=== PATIENT | male | born 1950 | race Caucasian/White ===

== ENCOUNTER 2024-10-16 20:20 | Inpatient (IN) | payer MEDICARE, OTHER, SELFPAY ==
[2024-10-16 20:22] VITALS: BMI 27.0
--- NOTE | 2024-10-16 20:26 | EKG_ITS ---
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1950 Requested By: Cole Estrella Order Number: [id number] Reading MD: Cole Estrella Measurements Intervals [place] Rate: 99 P: 64 TN: 168 QRS: 267 QRSD: 97 T: 72 QT: 329 QTc: 422 Interpretive Statements SINUS RHYTHM INCOMPLETE RIGHT BUNDLE BRANCH BLOCK [90+ ms QRS DURATION, TERMINAL R IN V1/V2, 40+ ms S IN I/aVL/V4/V5/V6] RIGHT VENTRICULAR HYPERTROPHY [SOME/ALL OF: PROMINENT R IN V1, LATE TRANSITION, RAD, SCOT, SSS] Compared to ECG 12/17/2023 18:35:48 Incomplete right bundle-branch block now present Atrial abnormality now present Right ventricular hypertrophy now present Indeterminate axis no longer present /store/S0/[id number]
[2024-10-16 20:48] VITALS: BP 139/100; PULSE 98; TEMP 36.4; O2SAT 93
--- NOTE | 2024-10-16 20:51 | EDNOTE_ITS ---
ED SOB =RME/HPI General Chief Complaint: Chest Pain Stated Complaint: CHEST PAIN, SOB, HIGH BP Time Seen by Provider: 10/16/24 20:22 Arrival date/time: 10/16/24 20:20 RME / HPI RME / HPI Narrative: This section includes all my notes and documentations, including HPI, PE, and ED course. Cole Walter MD HPI: 74-year-old male here with 2 to 3 week history of worsening cough, productive cough, purulent sputum, and dyspnea. Has been seen by doctors multiple times, including at another emergency room. Took 2 courses of Z-Semaj and prednisone courses. But not getting better. Using more oxygen than normal. Normally, he uses oxygen only as needed, such as when exercising. But in the past couple weeks, he has been using the oxygen [id number] with no relief. He also reports anterior chest pain for the past few days. No other complaints. ROS: All negative except as documented in HPI. Physical Exam: General: Alert and oriented. In mild respiratory distress. Hypoxia noted. Eyes: Conjunctivae and lids clear. ENT: No nasal congestion. Neck: Supple. Heart: RRR. Lungs: Mild respiratory distress. Severely decreased air movement with diffuse rhonchi. Abdomen: Soft and nontender. Skin: Warm and dry. Neuro: Alert and oriented X 3. I reviewed all diagnostic test results. My interpretation of the EKG is sinus rhythm with no acute ST?T changes. My interpretation of the chest x-ray is no acute findings. Blood tests and urine tests unremarkable. At this point, diagnoses include acute respiratory failure with hypoxia and COPD exacerbation. Treatment here included Solu-Medrol and neb treatments and Levaquin and two Tylenol #3. Significant improvement not noted. I discussed the case with our hospitalist. About the presentation and exam and diagnostics and treatments here. And need of further care in the hospital. Will accept the patient. Cole Walter MD Related Data Home Medications ?Medication ?Instructions ?Recorded ?Confirmed albuterol sulfate 90 mcg/actuation 2 puff inhalation Q 6H PRN sob 12/03/20 12/03/20 aerosol inhaler budesonide-formoterol HFA 160 2 puff inhalation BID 12/03/20 mcg-4.5 mcg/actuation aerosol inhaler (Symbicort) cephalexin 500 mg capsule 500 mg PO Q4H 12/03/2012/03 prednisone 20 mg tablet 20 mg PO Q8H 12/03/20 tiotropium bromide 18 mcg capsule 18 mcg inhalation QD AY 12/03/20 12/03/20 with inhalation device (Spiriva with HandiHaler) Previous Rx's ?Medication ?Instructions ?Recorded levofloxacin 750 mg tablet 750 mg PO QDAY #4 tabs 11/11 10/31 promethazine-DM 6.25 mg-15 mg/5 mL 5 ml PO QPM #473 mL 12/03/20 oral syrup budesonide-formoterol HFA 160 1 puff inhalation BID #1 0.2 grams 12/02/21 mcg-4.5 mcg/actuation aerosol inhaler (Symbicort) cephalexin 500 mg capsule 500 mg PO QID #20 caps 12/02 prednisone 20 mg tablet 20 mg PO QDAY PRN copd #20 t abs 12/02/21 prednisone 20 mg tablet See Taper PO QDAY #16 tabs 0 12/17/23 Allergies Allergy/AdvReac Type Severity Reaction Status Date / Time No Known Allergies Allergy Verified 10/16/24 20:22 Course Quality Measures none Orders Category Date Time Status Bedside COVID-19 Antigen Test NOW Care 10/16/24 21:00 Active Bedside Influenza A&B Antigen Test NOW Care 10/16/24 21:00 Completed COVID-19 Screening Questionnaire NOW Care 10/16/24 23:41 Active COVID-19 Screening Questionnaire NOW Care 10/16/24 23:42 Active Decision to Admit X1 Care 10/16/24 23:40 Completed Decision to Admit X1 Care 10/16/24 23:42 Completed EKG (ED ONLY) *Do not use* NOW Care 10/16/24 20:26 Completed Saline [Insert IV] NOW Care 10/16/24 21:00 Completed EKG (ED Only) Stat Exams 10/16/24 20:26 Draft XR chest 1V portable Stat Exams 10/16/24 21:01 Completed ABG [Arterial Blood Gas] Stat Lab 10/16/24 20:28 Completed BNP [B-Type Natriuretic Peptide] Stat Lab 10/16/24 21:12 Completed CBC Stat Lab 10/16/24 21:12 Completed CMP [Comprehensive Metabolic Panel] Stat Lab 10/16/24 21:12 Completed Cocci Serology IgM with reflex to IgG [Cocci Serology, Lab 10/16/24 21:12 Received Unk History] Stat D-Dimer Stat Lab 10/16/24 21:12 Completed Magnesium Stat Lab 10/16/24 21:12 Completed RSV [Respiratory Syncytial Virus Ag] Stat Lab 10/16/24 21:02 Ordered TSH [Thyroid Stimulating Hormone] Stat Lab 10/16/24 21:12 Completed Troponin I Stat Lab 10/16/24 21:12 Completed UA, C/S IF [Urinalysis, C/S if Indicated] Stat Lab 10/16/24 22:26 Completed ACETAMINOPHEN w/COD 300-30 [Tylenol w/Cod #3] Med 10/16/24 21:01 Discontinued 2 tab PO X1 ONE Albuterol/Ipratr Rt Lelo [Duoneb Rt Lelo] Med 10/16/24 21:01 Discontinued 3 ml INH X1 ONE Levofloxacin/D5w 500 mg Ivpb [Levaquin Ivpb] Med 10/16/24 23:08 Discontinued 500 mg in 100 ml IV X1 MethylPREDNISolone.* [SoluMEDROL Inj] Med 10/16/24 21:01 Discontinued 125 mg IVP X1 ONE Vital Signs Vital signs: Vital Signs Temperature 97.5 F 10/16/24 20:48 Pulse Rate 98 10/16/24 20:48 Blood Pressure 139/100 H 10/16/24 20:48 Pulse Oximetry (%) 93 L 10/16/24 20:48 Oxygen Delivery Method Room Air 10/16/24 20:48 Shortness of Breath / Dyspnea Patient data External records reviewed:: [facility] previous records Clinical information provided by:: patient Social determinants that could affect healthcare access:: none Patient has the following chronic illnesses:: COPD How is presenting disease/condition affected by chronic disease/condition?: exacerbated by Evaluation data The following diagnostics were reviewed and interpreted by me:: lab results, radiology exam(s) and EKG tracing(s) Lab and/or radiology exams considered but not ordered:: None Interpretation Summary: Normal diagnostics Medications / Prescriptions Medications or Prescriptions considered but not ordered:: None Medication administrations:: Medication Administration History Acetylcysteine (Acetylcysteine Rt Lelo 10% 4 Ml Nebu) 3 ml INH Q6H ROYAL Stop: 11/16/24 00:29 Last Admin: 10/17/24 00:54 Dose: 3 ml Documented By: THEODORE Albuterol/Ipratropium (Albuterol/Ipratropium (Duoneb) Rt Lelo 3 Ml Nebu) 3 ml INH Q6H ROYAL Stop: 11/16/24 00:29 Last Admin: 10/17/24 00:54 Dose: 3 ml Documented By: THEODORE Guaifenesin (Guaifenesin Syrup 200 Mg/10 Ml Udc) 200 mg PO TID ROYAL; Protocol Stop: 11/16/24 00:29 Heparin Sodium (Porcine) (Heparin Sod Inj 5000 Unit/Ml Vial) 5,000 unit SC Q8HR ROYAL Stop: 10/31/24 05:59 Methylprednisolone Sodium Succinate (Methylprednisolone Sod Succ 40 Mg Vial) 40 mg IVP TID [facility] Stop: 10/24/24 05:59 Discontinued Medications Acetaminophen/Codeine Phosphate (Acetaminophen W/Cod 300-30 Tablet) 2 tab PO X1 ONE Stop: 10/16/24 21:02 Last Admin: 10/16/24 21:54 Dose: 2 tab Documented By: SURAJ Albuterol/Ipratropium (Albuterol/Ipratropium (Duoneb) Rt Lelo 3 Ml Nebu) 3 ml INH X1 ONE Stop: 10/16/24 21:02 Last Admin: 10/16/24 21:21 Dose: 3 ml Documented By: THEODORE Levofloxacin/Dextrose (Levaquin Ivpb) 500 mg in 100 mls @ 100 mls/hr IV X1 ONE Stop: 10/17/24 00:07 Last Admin: 10/16/24 23:39 Dose: 100 mls/hr Documented By: SURAJ Methylprednisolone Sodium Succinate (Methylprednisolone Sod Succ 62.5 Mg/Ml 2ml Vial) 125 mg IVP X1 ONE Stop: 10/16/24 21:02 Last Admin: 10/16/24 21:54 Dose: 125 mg Documented By: SURAJ From pr, patient received Solu-Medrol and neb treatments and Levaquin and two Tylenol #3. Consultations Consultation(s) initiated? (list below): No Diagnosis Shortness of Breath Differential Diagnosis: acute exacerbation of chronic obstructive airways disease, congestive heart failure, community acquired pneumonia, asthma with exacerbation and pulmonary embolism Most likely diagnosis given after review of the tests above:: COPD exacerbation Admission Indicated Admission indicated?: indicated Explain why admission is indicated or not indicated:: No significant improvement noted with treatments here. Admission Request Was there a request for admission?: Yes Admission Attestation Admission request attestation: Discussed case with Hospitalist service regarding admission. Discussed patients ED course, exam findings, labs, and radiology results. The Hospitalist [agrees] to accept the patient for admission. Disposition Plan Disposition Plan: Admit Discharge Plan Plan Patient Disposition: Admit Acute Care w/in Hospital Problem List Clinical Impression: Acute respiratory failure with hypoxia, COPD exacerbation
--- NOTE | 2024-10-16 21:01 | XR_ITS ---
Examination: AP chest single view Technique one AP portable upright chest single view Exam date and time: October 16, 2024 2111 hours INDICATIONS: Shortness of breath hypertension today FINDINGS: Normal heart size Stable scarring in the right upper lobe compared with December 17, 2023 No pneumonia or pulmonary edema Moderate hyperexpansion IMPRESSION: COPD No interval pneumonia or pulmonary edema
[2024-10-16] MEDS: ALBUTEROL/IPRATROPIUM (Duoneb) RT SOL 3 ML NEBU INH (21:21)
[2024-10-16 21:31] VITALS: PULSE 89; RESP 19; O2SAT 96
[2024-10-16 21:33] LABS: Basophils % (Auto) 0 % (0-2.5); Eosinophils % (Auto) 0 % (0-10); Hematocrit 44.3 % (41.0-53.0); Hemoglobin 15.4 g/dL (13.5-16.0); Immature Granulocytes % (Auto) 1 % (0-0); Immature Granulocytes Auto 0.11 Thou/mm3 (0.00-0.00); Lymphocytes # (Auto) 0.7 Thou/mm3 (1.0-4.8); Lymphocytes % (Auto) 7 % (10-50); Mean Corpuscular HGB Conc 34.8 g/dl (31.0-37.0); Mean Corpuscular Hemoglobin 31.6 pg (25.0-35.0); Mean Corpuscular Volume 91 fL (80-100); Monocytes # (Auto) 0.2 Thou/mm3 (0.0-0.8); Monocytes % (Auto) 2 % (0-12); Neutrophils % (Auto) 90 % (37-80); Nucleated Red Blood Cell % 0 /100 WBC (0); Platelet Count 228 Thou/mm3 (140-440); RDW Standard Deviation 43.6 fL (35.1-43.9); Red Blood Count 4.87 Miln/mm3 (4.50-5.90)
[2024-10-16 21:33] LABS: Base Excess 2 (-3-3); HCO3 26 mEq/L (20-26); Inspired Oxygen, FIO2 21 %; O2 Saturation 96 % (91-98); PCO2 38 mmHg (32.0-48.0); PO2 70 mmHg (83-108); pH, Arterial 7.45 (7.35-7.45)
[2024-10-16 21:34] LABS: Allen Test Performed/OK; Puncture Site Right Radial
[2024-10-16 21:40] LABS: B-Type Natriuretic Peptide 28 pg/mL (0-100)
[2024-10-16 21:44] LABS: Alanine Aminotransferase 34 U/L (10-49); Albumin, Serum 4.6 gm/dL (3.4-4.8); Albumin/Globulin Ratio 1.6 (1.2-2.2); Alkaline Phosphatase 100 U/L (46-116); Anion Gap 11 (7-16); Aspartate Amino Transferase 26 U/L (0-34); BUN/Creatinine Ratio 18 Ratio (12-20); Blood Urea Nitrogen 14 mg/dL (9-23); Carbon Dioxide 26.2 mMol/L (20.0-31.0); Chloride 91 mMol/L (98-107); Creatinine (Component) 0.8 mg/dL (0.6-1.3); Estimated Creatinine Clearance 90.2 mL/min (>60); Globulin 2.9 gm/dL (2.3-3.5); Glucose 148 mg/dL (74-106); Magnesium 1.8 mg/dL (1.6-2.6); Osmolality,Calculated 260 (275-295); Potassium 4.3 mMol/L (3.4-5.1); Sodium 128 mMol/L (136-145); Thyroid Stimulating Hormone 0.64 uIU/mL (0.55-4.78); Total Protein 7.5 gm/dL (5.7-8.2); Troponin I < 0.002 ng/mL (0.0-0.045); eGFR > 60 See Note
[2024-10-16 21:53] LABS: D-Dimer 816 ng/mL (<600)
[2024-10-16] MEDS: MethylPREDNISolone SOD SUCC 62.5 MG/ML 2ML VIAL 125 MG IVP (21:54)
[2024-10-16] MEDS: ACETAMINOPHEN w/COD 300-30 TABLET 2 TAB PO (21:54)
[2024-10-16 21:57] VITALS: BP 128/97; PULSE 90; RESP 20; TEMP 36.3; O2SAT 94
[2024-10-16 22:34] LABS: Collection Type, Urine Clean Catch; Squamous Epithelial Cell,Urine 0 /hpf (0-5)
[2024-10-16 22:38] LABS: Bilirubin,Urine Negative (Negative); Blood,Urine Negative (Negative); Clarity,Urine Clear (Clear/Hazy); Color,Urine Colorless (Lt Yel-Yel); Culture Indicated,Urine Not Indicated; Glucose, Urine Negative (Negative); Ketones,Urine Negative (Negative); Leukocyte Esterase,Urine Negative (Negative); Nitrite,Urine Negative (Negative); PH,Urine 6.5 (5.0-7.0); Protein,Urine Negative (Neg - Trace); RBC,Urine 3 /hpf (0-3); Specific Gravity,Urine 1.012 (1.001-1.035); Urobilinogen,Urine Negative mg/dL (0.0-1.0); WBC,Urine < 1 /hpf (0-5)
[2024-10-16 23:28] VITALS: BP 146/106; BP 153/118; PULSE 100; RESP 20; TEMP 36.3; O2SAT 96
[2024-10-16] MEDS: LEVOFLOXACIN/D5W 500 MG IVPB 500 MG/100 ML BAG 100 MG IV (23:39)
[2024-10-17] VITALS (16 sets, daily range): BP systolic 122–152; BP diastolic 90–113; PULSE 83–111; RESP 16–24; TEMP 36.1–36.8; O2SAT 95–99
--- NOTE | 2024-10-17 00:19 | ECHO_ITS ---
Transthoracic Echo Report Ht (in): 73 Wt (lb): 205 Exam Location: Portable Status: Emergency Billet Bed Operator: MALI Huerta^^^^ Indications: Procedure Performed: BP: 130 / 70 HR: Rhythm: Sinus Technical Quality: Very technically difficult study MEASUREMENT (Male / Female) Normal Values S 2D ECHO LV Diastolic Diameter PLAX 4.3 cm 4.2 - 5.9 / 3.9 - 5.3 cm LV Systolic Diameter PLAX 3.0 cm IVS Diastolic Thickness 0.8 cm 0.6 - 1.0 / 0.6 - 0.9 cm LVPW Diastolic Thickness 1.1 cm 0.6 - 1.0 / 0.6 - 0.9 cm LV Relative Wall Thickness 0.4 LVOT Diameter 1.8 cm Aortic Root Diameter 3.3 cm LA Systolic Diameter LX 2.3 cm 3.0 - 4.0 / 2.7 - 3.8 cm DOPPLER AV Peak Velocity 90.1 cm/s AV Peak Gradient 3.2 mmHg AV Mean Gradient 2.0 mmHg AV Velocity Time Integral 13.1 cm LVOT Peak Velocity 82.9 cm/s LVOT Peak Gradient 2.7 mmHg LVOT Velocity Time Integral 22.6 cm AV Area Cont Eq vti 4.4 cm? AV Area Cont Eq pk 2.3 cm? MV Area PHT 4.7 cm? Mitral E Point Velocity 85.3 cm/s Mitral A Point Velocity 57.3 cm/s Mitral E to A Ratio 1.5 LV E' Lateral Velocity 8.0 cm/s Mitral E to LV E' Lateral Ratio 10.7 LV E' Septal Velocity 9.3 cm/s Mitral E to LV E' Septal Ratio 9.2 RVOT Peak Velocity 54.7 cm/s FINDING S Left Ventricle Normal left ventricular size, wall thickness, systolic function with no obvious regional wall motion abnormalities. There is grade II diastolic dysfunction of the left ventricle (pseudonormal filling pattern). The left ventricular ejection fraction is normal, estimated at 55-60%. Right Ventricle The right ventricle is normal in size and systolic function. The estimated right ventricular systolic pressure, 20 mmHg. Left Atrium The left atrium is normal by two-dimensional, color flow and Doppler imaging with no structural abnormalities, no thrombus formation present. Right Atrium The right atrium is normal by two-dimensional imaging, color flow and Doppler imaging with no structural abnormalities, no thrombus formation present. Atrial Septum The interatrial septum appears normal with no evidence of a shunt. Aorta The aorta is normal by two-dimensional, color flow and Doppler interrogation. Mitral Valve Trace to mild mitral regurgitation. Aortic Valve Structurally normal aortic valve. Mild thickening of the aortic valve leaflets. Tricuspid Valve There is mild tricuspid valve regurgitation. Pulmonic Valve The pulmonic valve is not well visualized. There is no significant pulmonic valve regurgitation. Vessels The pulmonary artery appears normal. The inferior vena cava pulmonary and hepatic veins appear normal. Pericardium The pericardium is normal by two-dimensional imaging. There is no significant pericardial effusion. CONCLUSION S Indication: Shortness of breath-possible PAH Normal LV size and function with estimated EF 55 to 60%. Mild LVH. Normal RV size and function. Possible mild TR not well-visualized and could not estimate RVSP accurately Mild attic valve sclerosis without stenosis. Mild MR. Mild TR. Pericardial fat pad noted. Johnny Busch (Electronically Signed) Final Date: 17 October 2024 20:39
[2024-10-17] MEDS: ALBUTEROL/IPRATROPIUM (Duoneb) RT SOL 3 ML NEBU INH ×3 (00:54→19:09)
[2024-10-17] MEDS: ACETYLCYSTEINE RT SOL 10% 4 ML NEBU 3 ML INH ×2 (00:54→07:11)
--- NOTE | 2024-10-17 01:03 | PD.RESHP ---
Documentation for date of: 10/17/24 [facility] History of Present Illness History of present illness: The patient is a 74-year-old male with significant past medical history of COPD on 2 L home oxygen on and off presented to ED on 10/16/2024 with chief complaint of worsening of SOB for 1 day. He reported that he just came from [facility] to [place] to sell his home, but as the air quality in [place] is poor, he started developing worsening SOB. He admitted trying to bring out phlegm, but has not been able to do so. He denied any headache, lightheadedness, chest pain, abdominal pain, any changes in bowel or bladder habits, or leg swelling, fever or chills, nausea or vomiting. 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 In the ED his vitals were significant for blood pressure 139/100, pulse 98, saturating 93% on 5 L NC. CBC, ABG fairly WNL. Chemistry panel revealed sodium 128, chloride 91, calculated osmolality 260, UA negative and coccidiomycosis IgM antibody pending. EKG revealed sinus rhythm, chest x-ray revealed no pneumonia or pulmonary edema. PMH: As mentioned above SHX: Unremarkable Social history: Past smoker Medications: To be reconciled Allergies: No known allergies The patient was given IV levofloxacin 500 Mg x 1, IV methylprednisone 125 mg x 1, and admitted to med telemetry unit for further management of acute on chronic hypoxic respiratory failure secondary to COPD exacerbation. Review of Systems Review of Systems Systems Reviewed: All systems reviewed, normal except as documented Exam Vital Signs Temp Pulse Resp BP Pulse Ox O2 Del Method O2 Flow Rate 97.4 F 102 H 21 H 153/118 H 94 L Nasal Cannula 1 10/16/24 23:28 10/17/24 00:55 10/17/24 00:55 10/16/24 23:28 10/17/24 00:55 10/16/24 23:28 10/17/24 00:55 Narrative Exam General: No acute distress, Alert and Oriented x 3 HEENT: Moist mucous membranes, oropharynx clear Neck: Supple, No masses, No JVD CVS: S1S2 Regular rate and rhythm, No murmurs, rubs or gallops Lungs: Distant breath sound, no wheeze no rhonchi stated, saturating 92% on 2 L NC Abd: Soft, NT/ND, +BS, no organomegaly Ext: No edema, warm and well perfused Skin: No rash Psych: Appropriate mood and affect Results: Labs 10/16/24 21:12 10/16/24 21:12 Labs: Short CBC 10/16/24 Range/Units 21:12 WBC 10.0 (3.8-10.6) Thou/mm3 Hgb 15.4 (13.5-16.0) g/dL Hct 44.3 (41.0-53.0) % Plt Count 228 (140-440) Thou/mm3 BMP 10/16/24 21:12 Sodium 128 L Potassium 4.3 Chloride 91 L Carbon Dioxide 26.2 BUN 14 Creatinine 0.8 Glucose 148 H Calcium 10.0 Cardiac Enzymes 10/16/24 Range/Units 21:12 Troponin I < 0.002 (0.0-0.045) ng/mL Liver Function 10/16/24 Range/Units 21:12 Total Bilirubin 1.0 (0.3-1.2) mg/dL AST 26 (0-34) U/L ALT 34 (10-49) U/L Alkaline Phosphatase 100 (46-116) U/L Albumin 4.6 (3.4-4.8) gm/dL Urine 10/16/24 Range/Units 22:26 Urine Color Colorless A (Lt Yel-Yel) Urine Clarity Clear (Clear/Hazy) Urine pH 6.5 (5.0-7.0) Ur Specific [place] 1.012 (1.001-1.035) Urine Protein Negative (Neg - Trace) Urine Glucose (UA) Negative (Negative) ABG Interpretation ABG results: 10/16/24 20:28 ABG pH 7.45 ABG pCO2 38 ABG pO2 70 L ABG HCO3 26 ABG O2 Saturation 96 ABG Base Excess 2 Quality Measures Quality Measures none Advance care planning discussed with:: patient Medications Home Medications and Allergies Home Medications ?Medication ?Instructions ?Recorded ?Confirmed ?Type albuterol sulfate 90 mcg/actuation 2 puff inhalation Q6H PRN sob 12/03/20 12/03/20 History aerosol inhaler budesonide-formoterol HFA 160 2 puff inhalation BID 12/03/20 10/17/24 History mcg-4.5 mcg/actuation aerosol inhaler (Symbicort) prednisone 20 mg tablet 20 mg PO Q8H 12/03/20 10/17/24 History tiotropium bromide 18 mcg capsule 18 mcg inhalation QDAY 12/03/20 10/17/24 History with inhalation device (Spiriva with HandiHaler) albuterol sulfate 90 mcg/actuation 1 inh inhalation Q4H PRN shortness 10/17/24 10/17/24 History aerosol inhaler of breath or wheezing prednisone 20 mg tablet 40 mg PO QDAY 10/17/24 10/17/24 History tamsulosin PO QDAY 10/17/24 History tiotropium bromide 18 mcg capsule 1 cap inhalation QDAY 10/17/24 10/17/24 History with inhalation device (Spiriva with HandiHaler) Allergies Allergy/AdvReac Type Severity Reaction Status Date / Time No Known Allergies Allergy Verified 10/16/24 20:22 Visit Medications Acetylcysteine (Acetylcysteine Rt Lelo 10% 4 Ml Nebu) 3 ml INH Q6H ROYAL Stop: 11/16/24 00:29 Last Admin: 10/17/24 00:54 Dose: 3 ml Albuterol/Ipratropium (Albuterol/Ipratropium (Duoneb) Rt Lelo 3 Ml Nebu) 3 ml INH Q6H ROYAL Stop: 11/16/24 00:29 Last Admin: 10/17/24 00:54 Dose: 3 ml Guaifenesin (Guaifenesin Syrup 200 Mg/10 Ml Udc) 200 mg PO TID ROYAL; Protocol Stop: 11/16/24 00:29 Heparin Sodium (Porcine) (Heparin Sod Inj 5000 Unit/Ml Vial) 5,000 unit SC Q8HR ROYAL Stop: 10/31/24 05:59 Methylprednisolone Sodium Succinate (Methylprednisolone Sod Succ 40 Mg Vial) 40 mg IVP TID ROYAL Stop: 10/24/24 05:59 Discontinued Medications Acetaminophen/Codeine Phosphate (Acetaminophen W/Cod 300-30 Tablet) 2 tab PO X1 ONE Stop: 10/16/24 21:02 Last Admin: 10/16/24 21:54 Dose: 2 tab Albuterol/Ipratropium (Albuterol/Ipratropium (Duoneb) Rt Lelo 3 Ml Nebu) 3 ml INH X1 ONE Stop: 10/16/24 21:02 Last Admin: 04/06/25 21:21 Dose: 3 ml Levofloxacin/Dextrose (Levaquin Ivpb) 500 mg in 100 mls @ 100 mls/hr IV X1 ONE Stop: 10/17/24 00:07 Last Admin: 10/16/24 23:39 Dose: 100 mls/hr Methylprednisolone Sodium Succinate (Methylprednisolone Sod Succ 62.5 Mg/Ml 2ml Vial) 125 mg IVP X1 ONE Stop: 10/16/24 21:02 Last Admin: 10/16/24 21:54 Dose: 125 mg Assessment & Plan Plan The patient is a 74-year-old male with significant past medical history of COPD on 2 L home oxygen on and off presented to ED on 10/16/2024 with chief complaint of worsening of SOB for 1 day is currently being managed for COPD exacerbation #Acute on chronic hypoxic respiratory failure 2/2 #COPD exacerbation The etiology of COPD exacerbation is currently unknown, possibly due to poor air quality in the [place] as suspected by the patient, and he developed worsening of SOB after moving from [place] to [place]. Patient was initially requiring 5 L NC and saturating 93%. Received 1 dose of levofloxacin 500 Mg IV and IV methylprednisone 125 Mg x 1 CURB-65 score 2, borderline for inpatient management -Oxygen as needed, taper down to oxygen saturation between 88 to 92% -DuoNeb every 6 hourly scheduled -Mucomyst every 6 hourly as scheduled -Antibiotics not continued as the patient does not has any fever, leukocytosis and respiratory panel is negative -Guaifenesin 200 Mg 3 times daily -Methylprednisone IV 40 Mg 3 times daily -A.m. labs for CBC and CMP #Possible pulmonary artery hypertension type III Secondary to longstanding COPD - Ordered TTE - May consider consulting dental mold maker if RVSP is severely elevated #Moderate hypoosmolar hyponatremia Likely secondary to ectopic ACTH production 2/2 longstanding COPD -Continue to treat underlying cause Hospital maintenance: Dispo: Patient admitted to telemetry unit for further management of acute on chronic hypoxic respiratory failure secondary to COPD exacerbation Diet: Regular diet DVT prophylaxis: Subcu heparin CODE STATUS: Full code The patient's management plan was discussed with my attending physician MD Marcellus Gil MD, PGY2 Attending Provider Attestation/Addendum 74-year-old male patient with COPD on home oxygen complaining of increasing shortness of breath and cough while staying in in town from the [place] area. Patient has COPD exacerbation. White count is 10,000 eosinophils 0%. EKG showed incomplete right bundle branch block, right ventricular hypertrophy pattern. Patient was admitted for COPD exacerbation will be given inhaled bronchodilator and steroid. Discussed with housestaff
[2024-10-17] MEDS: guaiFENesin SYRUP 200 MG/10 ML UDC PO ×2 (03:05→17:48)
[2024-10-17 04:07] LABS: Respiratory Syncytial Virus Ag Negative (Negative)
[2024-10-17 06:06] LABS: Basophils % (Auto) 0 % (0-2.5); Eosinophils % (Auto) 0 % (0-10); Hematocrit 40.9 % (41.0-53.0); Immature Granulocytes % (Auto) 1 % (0-0); Immature Granulocytes Auto 0.09 Thou/mm3 (0.00-0.00); Lymphocytes # (Auto) 0.4 Thou/mm3 (1.0-4.8); Lymphocytes % (Auto) 5 % (10-50); Mean Corpuscular HGB Conc 34.2 g/dl (31.0-37.0); Mean Corpuscular Hemoglobin 31.8 pg (25.0-35.0); Mean Corpuscular Volume 93 fL (80-100); Monocytes # (Auto) 0.1 Thou/mm3 (0.0-0.8); Monocytes % (Auto) 1 % (0-12); Neutrophils # (Auto) 7.6 Thou/mm3 (1.8-7.7); Neutrophils % (Auto) 93 % (37-80); Nucleated Red Blood Cell % 0 /100 WBC (0); Platelet Count 194 Thou/mm3 (140-440); White Blood Count 8.3 Thou/mm3 (3.8-10.6)
[2024-10-17] MEDS: HEPARIN SOD INJ 5000 UNIT/ML VIAL SC ×2 (06:10→13:21)
[2024-10-17 06:27] LABS: Alanine Aminotransferase 28 U/L (10-49); Albumin/Globulin Ratio 1.6 (1.2-2.2); Alkaline Phosphatase 85 U/L (46-116); Anion Gap 7 (7-16); Aspartate Amino Transferase 21 U/L (0-34); BUN/Creatinine Ratio 16 Ratio (12-20); Bilirubin,Total 0.7 mg/dL (0.3-1.2); Blood Urea Nitrogen 14 mg/dL (9-23); Calcium 9.5 mg/dL (8.3-10.6); Calcium (Corrected) 9.5 mg/dL (8.5-10.1); Carbon Dioxide 27.7 mMol/L (20.0-31.0); Cardiac Risk Estimate 2.3 RATIO (4.0-6.7); Chloride 93 mMol/L (98-107); Cholesterol 172 mg/dL (132-200); Creatinine (Component) 0.9 mg/dL (0.6-1.3); Estimated Creatinine Clearance 80.1 mL/min (>60); Globulin 2.5 gm/dL (2.3-3.5); Glucose 190 mg/dL (74-106); HDL Cholesterol 76 mg/dL (40-60); LDL Cholesterol,Calculated 87 mg/dL (0-130); Magnesium 1.8 mg/dL (1.6-2.6); Osmolality,Calculated 262 (275-295); Potassium 4.3 mMol/L (3.4-5.1); Sodium 128 mMol/L (136-145); Total Protein 6.5 gm/dL (5.7-8.2); Triglycerides 46 mg/dL (30-150); eGFR > 60 See Note
--- NOTE | 2024-10-17 10:05 | XR_ITS ---
Examination: CTA chest with intravenous contrast 2-D reconstructions 3-D reconstructions, vascular Date and time of exam: October 17, 2024 1540 hrs. Indications: Chest pain shortness of breath today CTDI: vol (mGy) 18.4 DLP: (mGycm) 481 Technique: Multiple axial sections of the thorax have been obtained. 3 mm slice thickness, from below the hemidiaphragms to above the apices of the lungs. Mediastinal and lung density settings have been obtained. 2-D sagittal and coronal reconstructions. 3-D angiographic renderings, 3-D volume renderings, 3D post processing, vascular maximum intensity projections obtained. Contrast administered is 100 cc Isovue-370. Low dose protocols were performed. One or more of the following dose reduction techniques were used; automated exposure control, adjustment of the mA and/or KV according to patient size, use of iterative reconstruction technique. Findings: No thoracic aortic aneurysmal dilatation No pulmonary artery filling defects No paratracheal tracheobronchial or bronchopulmonary adenopathy No pneumonia, pulmonary edema, pleural disease or pulmonary nodules Liver mildly irregular in contour No gallstones noted No pancreatic mass Spleen not enlarged Impression: No mediastinal lymphadenopathy No pneumonia, pulmonary edema, pleural disease or pulmonary nodules
[2024-10-17] MEDS: AZITHROMYCIN 250 MG TABLET 500 MG PO (10:25)
--- NOTE | 2024-10-17 10:45 | PC.SS ---
Addendum entered by Chantal Vargas 10/17/24 11:05: Alt medical decision maker: Luís, graciela, Original Note: SS met with patient who is alert/oriented. Patient was able to verify demographics. Patient is independent with ADL's. Patient admitted for COPD. Travis tis on 02 () at home. 2L continuous. Patient lives alone. He drives. Ambulatory. No DME. Patient follows p.c.p[facility] at the [facility]. He recently moved back and has not established a p.c.p. at the [facility] yet. Alt medical decision maker is partner, Luís. D/c plan remains to return home. Possible d/c today.
[2024-10-17] MEDS: amLODIPine BESYLATE 5 MG TABLET PO (12:14)
--- NOTE | 2024-10-17 12:22 | EKG_ITS ---
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
--- NOTE | 2024-10-17 13:00 | ESPR_ITS ---
<Statement entered by Jack Davidson MD - 10/19/24 07:35> Senior Resident Attestation: I supervised/discussed management plan with commercial internship physician Dr. Alcantar, and was involved in the care of this patient. I personally saw and examined the patient and discussed the assessment and plan with the entire medicine team, including my attending. I agree with the assessment and plan as documented. Patient's care was discussed with attending physician, Dr. Marquez. Jack Davidson MD PGY-2. Documentation for date of: 10/17/24 Subjective Subjective Interval history: Patient is seen and examined at bedside. Patient is admitted overnight. Still complaining of mild chest discomfort Vitals are stable. Patient appears anxious overall and bilateral decreased breath sounds are noted without wheeze Will continue nebulizations and added budesonide CT angio of chest is ordered in order to rule out PE Exam Vital Signs Temp Pulse Resp BP Pulse Ox O2 Del Method O2 Flow Rate 97.1 F 101 H 22 H 138/99 H 97 Nasal Cannula 1 10/17/24 16:00 10/17/24 16:00 10/17/24 16:10/17/24 16:00 10/17/24 16:00 10/17/24 16:10/17/24 16:00 Narrative Exam General: Awake. HEENT: Normocephalic, atraumatic, mucous membranes moist. Heart: Regular rate and rhythm, no murmurs. Lungs: Clear to auscultation with no wheezing or crackles. Overall decreased breath sounds noted, likely due to COPD Abdomen: Soft, nondistended, nontender, positive bowel sounds. ?No guarding or rebound tenderness. Neurologic: Alert and oriented x3, no gross neurological deficit, and patient able to move all 4 extremities. Extremities: No edema. Skin: No rash or ecchymoses. Objective Labs 10/18/24 04:31 10/18/24 04:31 Labs: Laboratory Results - last 24 hr 10/16/24 10/16/24 10/16/24 20:28 21:12 22:26 WBC 10.0 RBC 4.87 Hgb 15.4 Hct 44.3 MCV 91 MCH 31.6 MCHC 34.8 RDW Std Deviation 43.6 Plt Count 228 Neut % (Auto) 90 H Lymph % (Auto) 7 L Glynn % (Auto) 2 Eos % (Auto) 0 Baso % (Auto) 0 Neut # (Auto) 9.0 H Lymph # (Auto) 0.7 L Glynn # (Auto) 0.2 Eos # (Auto) 0.0 Baso # (Auto) 0.0 Immature Gran # (Auto) 0.11 H Absolute Nucleated RBC 0.00 Immature Gran % 1 H Nucleated RBC % 0 D-Dimer 816 H Puncture Site Right Radial ABG pH 7.45 ABG pCO2 38 ABG pO2 70 L ABG HCO3 26 ABG O2 Saturation 96 ABG Base Excess 2 FiO2 21 Sodium 128 L Potassium 4.3 Chloride 91 L Carbon Dioxide 26.2 Anion Gap 11 BUN 14 Creatinine 0.8 Estim Creat Clear Calc 90.2 eGFR > 60 BUN/Creatinine Ratio 18 Glucose 148 H Calculated Osmolality 260 L Calcium 10.0 Corrected Calcium 10.0 Magnesium 1.8 Total Bilirubin 1.0 AST 26 ALT 34 Alkaline Phosphatase 100 Troponin I < 0.002 B-Natriuretic Peptide 28 Total Protein 7.5 Albumin 4.6 Globulin 2.9 Albumin/Globulin Ratio 1.6 Triglycerides Cholesterol LDL Cholesterol, Calc HDL Cholesterol Cholesterol/HDL Ratio TSH 0.64 Free T4 Ur Collection Type Clean Catch Urine Color Colorless A Urine Clarity Clear Urine pH 6.5 Ur Specific Christoval 1.012 Urine Protein Negative Urine Glucose (UA) Negative Urine Ketones Negative Urine Blood Negative Urine Nitrite Negative Urine Bilirubin Negative Urine Urobilinogen (Auto) Negative Ur Leukocyte Esterase Negative Urine RBC 3 Urine WBC < 1 Ur Squamous Epith Cells 0 Urine Bacteria None Ur Culture Indicated? Not Indicated Coccidioides IgM Ab Negative RSV Rapid 10/17/24 10/17/24 10/17/24 02:40 04:50 12:37 WBC 8.3 RBC 4.40 L Hgb 14.0 Hct 40.9 L MCV 93 MCH 31.8 MCHC 34.2 RDW Std Deviation 44.0 H Plt Count 194 D Neut % (Auto) 93 H Lymph % (Auto) 5 L Glynn % (Auto) 1 Eos % (Auto) 0 Baso % (Auto) 0 Neut # (Auto) 7.6 Lymph # (Auto) 0.4 L Glynn # (Auto) 0.1 Eos # (Auto) 0.0 Baso # (Auto) 0.0 Immature Gran # (Auto) 0.09 H Absolute Nucleated RBC 0.00 Immature Gran % 1 H Nucleated RBC % 0 D-Dimer Puncture Site ABG pH ABG pCO2 ABG pO2 ABG HCO3 ABG O2 Saturation ABG Base Excess FiO2 Sodium 128 L Potassium 4.3 Chloride 93 L Carbon Dioxide 27.7 Anion Gap 7 BUN 14 Creatinine 0.9 Estim Creat Clear Calc 80.1 eGFR > 60 BUN/Creatinine Ratio 16 Glucose 190 H Calculated Osmolality 262 L Calcium 9.5 Corrected Calcium 9.5 Magnesium 1.8 Total Bilirubin 0.7 AST 21 ALT 28 Alkaline Phosphatase 85 Troponin I < 0.002 B-Natriuretic Peptide Total Protein 6.5 Albumin 4.0 D Globulin 2.5 Albumin/Globulin Ratio 1.6 Triglycerides 46 Cholesterol 172 LDL Cholesterol, Calc 87 HDL Cholesterol 76 H Cholesterol/HDL Ratio 2.3 L TSH 0.40 L Free T4 1.60 Ur Collection Type Urine Color Urine Clarity Urine pH Ur Specific Christoval Urine Protein Urine Glucose (UA) Urine Ketones Urine Blood Urine Nitrite Urine Bilirubin Urine Urobilinogen (Auto) Ur Leukocyte Esterase Urine RBC Urine WBC Ur Squamous Epith Cells Urine Bacteria Ur Culture Indicated? Coccidioides IgM Ab RSV Rapid Negative ABG Interpretation ABG results: 10/16/24 20:28 ABG pH 7.45 ABG pCO2 38 ABG pO2 70 L ABG HCO3 26 ABG O2 Saturation 96 ABG Base Excess 2 Quality Measures Quality Measures none Advance care planning discussed with:: patient Assessment & Plan Assessment Current Active Medications: Generic Name Dose Route Start Last Admin Trade Name Freq PRN Reason Stop Dose Admin Albuterol/Ipratropium 3 ml 10/17/24 00:30 10/17/24 07:11 Albuterol/Ipratropium (Duoneb) Rt Lelo 3 Ml Nebu INH 11/16/24 00:29 3 ml Q6H ROYAL Administration Azithromycin 500 mg 10/17/24 10:15 10/17/24 10:25 Azithromycin 250 Mg Tablet PO 10/24/24 10:14 500 mg QDAY ROYAL Administration Budesonide 0.5 mg 10/17/24 19:00 Budesonide Rt 0.5 Mg/2 Ml Nebu INH 11/16/24 18:59 BIDRT ROYAL Guaifenesin 200 mg 10/17/24 04:39 Guaifenesin Syrup 200 Mg/10 Ml Udc PO 11/16/24 05:59 Q6HR PRN COUGH Protocol Heparin Sodium (Porcine) 5,000 unit 10/17/24 06:00 10/17/24 13:21 Heparin Sod Inj 5000 Unit/Ml Vial SC 10/31/24 05:59 5,000 unit Q8HR ROYAL Administration Methylprednisolone Sodium Succinate 40 mg 10/18/24 09:00 Methylprednisolone Sod Succ 40 Mg Vial IVP 10/25/24 08:59 QDAY ROYAL Plan Patient is a 74-year-old male with significant past medical history of COPD on 2 L home oxygen on and off presented to ED on 10/16/2024 with chief complaint of worsening of SOB for 1 day is currently being managed for COPD exacerbation #Acute on chronic hypoxic respiratory failure 2/2 #COPD exacerbation The etiology of COPD exacerbation is currently unknown, possibly due to poor air quality in the [place] as suspected by the patient, and he developed worsening of SOB after moving from [place] to [place]. Patient was initially requiring 5 L NC and saturating 93%. Received 1 dose of levofloxacin 500 Mg IV and IV methylprednisone 125 Mg x 1 CURB-65 score 2, borderline for inpatient management -Oxygen as needed, taper down to oxygen saturation between 88 to 92% -DuoNeb every 6 hourly scheduled -Methylprednisolone 40 Mg IV push daily -Budesonide inhalations scheduled every 12 hourly -Azithromycin 500 Mg p.o. daily -CT angio chest is ordered to rule out PE - came back negative -Echo is ordered, read pending #Moderate hypoosmolar hyponatremia Likely secondary to ectopic ACTH production 2/2 longstanding COPD -Continue to treat underlying cause # History of BPH -Patient reported that he is using tamsulosin, unsure of the dose -Started on tamsulosin 0.4 Mg p.o. daily for now Hospital maintenance: Dispo: Telemetry Diet: Regular diet DVT prophylaxis: Subcu heparin CODE STATUS: Full code Patient plan of care was discussed with the attending physician, Dr. Marquez and senior resident Dr. Lety Alcantar, PGY1 Attending Provider Attestation/Addendum I attest that I was physically present for the evaluation, physical examination, lab and imaging review of the patient with the residents. I discussed the case with the residents and agree with the findings and plans of care as documented above. At bedside, patient continues to complain of chest tightness.? He is saturating well on room air.? Mildly tachycardic.? Continues to be on azithromycin.? We will decrease his steroid dosing to 40 mg daily.? Acetylcysteine discontinued.? Patient's D-dimer noted to be elevated, we will obtain CT angiogram.? A rapid response was called this afternoon due to chest discomfort, troponin and EKG were obtained, both were nonconcerning. Kassandra Marquez MD
[2024-10-17 13:14] LABS: Troponin I < 0.002 ng/mL (0.0-0.045)
--- NOTE | 2024-10-17 13:49 | PC.CC ---
Addendum entered by Macie Dunn RN 10/17/24 13:55: sent paperwork to [facility]. Called [facility], spoke to Soraya and setup the transport. She stated metal pickling equipment operator time is 1630 just to put pt info in the system. We have another pt at [facility] for CT. Once that pt is done, she will call me back with updated time. Original Note: I was informed inpatient CT is down and pt needs to go across at [facility] for CT. I coordinate with scale technician, pt primary team and bedside nurse. Pt needs Dr. cheung and JOLIE cheung with the pt. Which will be Dr. Negron and JOLIE Tolentino.
--- NOTE | 2024-10-17 14:00 | PD.RESEVENT ---
Documentation for date of: 10/17/24 Event Note Event Note: Rapid response was called around 12:30 PM, as patient is complaining of chest heaviness and discomfort. Denied chest pain, palpitations, sweating Vitals at the time showed blood pressure of 151/111 mmHg, SpO2 96% with 1 L oxygen, heart rate of 100bpm On physical examination, overall bilateral decreased breath sounds are heardand no wheeze noted. Patient appeared so anxious EKG and troponin are ordered. EKG showed sinus tachycardia. Troponin levels are negative Patient is changed from observation to telemetry Patient was offered some antianxiety medication but patient refused Patient received amlodipine 5 Mg just 5 minutes before the rapid Recommended to continue to monitor blood pressures and explained about his condition to the patient Patient plan of care was discussed with the attending physician, Dr. Marquez and senior resident Dr. Lety Alcantar, PGY1
[2024-10-17 14:46] LABS: Cocci Serology, IgM Negative (Negative)
[2024-10-17] MEDS: TAMSULOSIN HCL 0.4 MG CAPSULE PO (18:21)
[2024-10-17] MEDS: BUDESONIDE RT 0.5 MG/2 ML NEBU INH (19:10)
[2024-10-18] VITALS (7 sets, daily range): BP systolic 117–138; BP diastolic 82–96; PULSE 87–112; RESP 15–21; TEMP 36.1–36.7; O2SAT 94–100; BMI 27.3
[2024-10-18] MEDS: ALBUTEROL/IPRATROPIUM (Duoneb) RT SOL 3 ML NEBU INH ×2 (00:25→07:28)
[2024-10-18 05:46] LABS: Basophils % (Auto) 0 % (0-2.5); Eosinophils % (Auto) 0 % (0-10); Hematocrit 40.9 % (41.0-53.0); Hemoglobin 14.3 g/dL (13.5-16.0); Immature Granulocytes % (Auto) 1 % (0-0); Lymphocytes # (Auto) 1.5 Thou/mm3 (1.0-4.8); Lymphocytes % (Auto) 11 % (10-50); Mean Corpuscular Hemoglobin 31.8 pg (25.0-35.0); Mean Corpuscular Volume 91 fL (80-100); Monocytes # (Auto) 1.3 Thou/mm3 (0.0-0.8); Monocytes % (Auto) 9 % (0-12); Neutrophils # (Auto) 10.5 Thou/mm3 (1.8-7.7); Neutrophils % (Auto) 79 % (37-80); Nucleated Red Blood Cell % 0 /100 WBC (0); Platelet Count 205 Thou/mm3 (140-440); RDW Standard Deviation 44.1 fL (35.1-43.9); Red Blood Count 4.49 Miln/mm3 (4.50-5.90); White Blood Count 13.4 Thou/mm3 (3.8-10.6)
[2024-10-18] MEDS: HEPARIN SOD INJ 5000 UNIT/ML VIAL SC (05:52)
[2024-10-18 06:18] LABS: Alanine Aminotransferase 26 U/L (10-49); Albumin, Serum 4.1 gm/dL (3.4-4.8); Albumin/Globulin Ratio 1.8 (1.2-2.2); Alkaline Phosphatase 81 U/L (46-116); Anion Gap 7 (7-16); Aspartate Amino Transferase 22 U/L (0-34); BUN/Creatinine Ratio 21 Ratio (12-20); Bilirubin,Total 0.9 mg/dL (0.3-1.2); Blood Urea Nitrogen 17 mg/dL (9-23); Calcium 9.6 mg/dL (8.3-10.6); Calcium (Corrected) 9.6 mg/dL (8.5-10.1); Carbon Dioxide 25.8 mMol/L (20.0-31.0); Chloride 94 mMol/L (98-107); Creatinine (Component) 0.8 mg/dL (0.6-1.3); Estimated Creatinine Clearance 90.2 mL/min (>60); Globulin 2.3 gm/dL (2.3-3.5); Glucose 116 mg/dL (74-106); Magnesium 1.9 mg/dL (1.6-2.6); Osmolality,Calculated 257 (275-295); Phosphorous 2.7 mg/dL (2.4-5.1); Potassium 3.8 mMol/L (3.4-5.1); Sodium 127 mMol/L (136-145); Total Protein 6.4 gm/dL (5.7-8.2); eGFR > 60 See Note
[2024-10-18] MEDS: BUDESONIDE RT 0.5 MG/2 ML NEBU INH (07:27)
[2024-10-18] MEDS: TAMSULOSIN HCL 0.4 MG CAPSULE PO (08:17)
[2024-10-18] MEDS: AZITHROMYCIN 250 MG TABLET 500 MG PO (08:17)
--- NOTE | 2024-10-18 10:57 | PC.SS ---
Update: Plan is for the patient to d/c home today.
[2024-10-18 11:25] LABS: Cocci Serology, IgG Negative (Negative)
--- NOTE | 2024-10-19 14:28 | PD.RESDS ---
Planned Discharge Date 10/19/24 DS: Providers Provider Date of admission: 10/17/24 12:27 Primary care physician: Physician No Primary/Family Admitting Provider: Royer Serna MD Attending Provider on Admission: Kassandra Marquez MD Attending Provider on DC: Yohannes Alcantar MD Discharging Provider: Yohannes Alcantar MD DS: Diagnosis Problem List Completed Was Problem List Reviewed/Reconciled?: Yes Hospital Course Hospital Course Hospital course: A 74-year-old male with significant past medical history of COPD, using 2 L oxygen at home as needed, BPH presented to the hospital with chief complaints of shortness of breath and admitted for acute exacerbation of COPD. Labs are unremarkable except for sodium 128. Tested negative for cocci. Chest x-ray was unremarkable except for COPD changes. CT angio was done that did not show any evidence of pulmonary embolism. Echocardiogram done showed Normal LV size and function with estimated EF 55 to 60%. Mild LVH. Normal RV size and function. Possible mild TR not well-visualized and could not estimate RVSP accurately. Mild aortic valve sclerosis without stenosis. Mild MR. Mild TR. Pericardial fat pad noted. patient was treated with steroids, azithromycin, nebulizations during the hospital stay. Patient is discharged to home with the following medications and recommendations -Follow-up with Primary doctor within 1 week of discharge. If you do not have appointment, please follow-up with the [facility] with Dr. Alcantar. Call [phone] to make an appointment. -Continue your home medications -Continue prednisone 40mg p.o qday for 3 days -Return to ED if symptoms persist or return #Acute on chronic hypoxic respiratory failure 2/2 #COPD exacerbation #Moderate hypoosmolar hyponatremia # History of BPH Patient plan of care was discussed with the attending physician, Dr. Marquez and senior resident Dr. Lety Alcantar, PGY1 Time Spent with Patient Time attestation: Total time spent providing and/or coordinating discharge services: Time spent: Less than 30 minutes Exam Vital Signs Temp Pulse Resp BP Pulse Ox O2 Del Method O2 Flow Rate 98.0 F 112 H 19 136/91 H 95 Nasal Cannula 2 10/18/24 12:33 10/18/24 12:33 10/18/24 12:33 10/18/24 12:33 10/18/24 12:33 10/18/24 12:33 10/18/24 12:33 Narrative Exam General: Awake. HEENT: Normocephalic, atraumatic, mucous membranes moist. Heart: Regular rate and rhythm, no murmurs. Lungs: Clear to auscultation with no wheezing or crackles. Overall decreased breath sounds noted, likely due to COPD Abdomen: Soft, nondistended, nontender, positive bowel sounds. ?No guarding or rebound tenderness. Neurologic: Alert and oriented x3, no gross neurological deficit, and patient able to move all 4 extremities. Extremities: No edema. Skin: No rash or ecchymoses. Discharge Plan Plan Patient Disposition: HOME (Self Care) Patient condition on transfer: Stable Care Plan Goals: -Follow-up with Primary doctor within 1 week of discharge. If you do not have appointment, please follow-up with the [facility] with Dr. Alcantar. Call [phone] to make an appointment. -Continue your home medications -Continue prednisone 40mg p.o qday for 3 days -Return to ED if symptoms persist or return Prescriptions/Referrals Prescriptions/Med Rec: Continued albuterol sulfate 90 mcg/actuation Hfa Aerosol Inhaler 2 puff INHALATION Q6H PRN (Reason: sob) tiotropium bromide [Spiriva with HandiHaler] 18 mcg Capsule, W/Inhalation Device 18 mcg INHALATION QDAY budesonide-formoterol [Symbicort] 160-4.5 mcg/actuation Hfa Aerosol Inhaler 2 puff INHALATION BID promethazine-DM 6.25-15 mg/5 mL syrup 5 ml PO QPM Qty: 473 0RF Rx Instructions: Before bed prednisone 20 mg tablet 20 mg PO QDAY PRN (Reason: copd) Qty: 20 0RF Taper: Prednisone Taper 20 mg DAILY for 2 Days and 0 Hour Rx Instructions: maintence, for copd take as need budesonide-formoterol [Symbicort] 160-4.5 mcg/actuation HFA aerosol inhaler 1 puff inhalation BID Qty: 10.2 0RF tamsulosin PO QDAY tiotropium bromide [Spiriva with HandiHaler] 18 mcg capsule, w/inhalation device 1 cap inhalation QDAY Patient Comments: pt does not remember strength of med. Rx Instructions: puncture 1 cap using device; one dose = 2 inhalations albuterol sulfate 90 mcg/actuation HFA aerosol inhaler 1 inh inhalation Q4H PRN (Reason: shortness of breath or wheezing) Rx Instructions: 200 metered inhalation (rescue inhaler) Changed prednisone 20 mg tablet 40 mg PO QDAY Qty: 3 0RF Discontinued levofloxacin 750 mg tablet 750 mg PO QDAY Qty: 4 0RF prednisone 20 mg tablet See Taper PO QDAY Qty: 16 0RF Taper: Prednisone Taper 60 mg DAILY for 2 Days and 0 Hour 40 mg DAILY for 2 Days and 0 Hour 20 mg DAILY for 3 Days and 0 Hour prednisone 20 mg tablet 40 mg PO QDAY Rx Instructions: started today 50mg. For 5 days but pt only takes prn. Referrals: No Primary/Family,Physician [Primary Care Provider] - Patient/Caregiver Discharge Instructions Education Materials: COPD: Chronic Coughing, COPD: Wheezing and Chest Tightness Print Language: Surinamese Stand Alone Forms: Radha Award Info., Patient Portal Info Letter Discharge Order Discharge Orders: Discharge (Routine); Ordered 10/18/24 Ordered By: Yohannes Alcantar Quality Discharge Quality Measures VTE prophylaxis Attestestation MD Attestation I attest that I was physically present for the evaluation, physical examination, lab and imaging review of the patient with the residents. I discussed the case with the residents and agree with the findings and plans of care as documented above. Kassandra Marquez MD
== END 2024-10-18 12:57 | disposition home or self-care (01) | DRG 190 ==
LOC: SERX 23:43 → S2NX 10-17 08:29 → SERHOLD 10-17 11:02 → S2NX 10-17 11:03
PROVIDERS: Student in an Organized Health Care Education/Training Program; Admitting Provider Internal Medicine; Emergency Provider Emergency Medicine; Visit Provider Student in an Organized Health Care Education/Training Program
DX: J44.1 Chronic obstructive pulmonary disease with (acute) exacerbation (principal); J96.21 Acute and chronic respiratory failure with hypoxia; E87.1 Hypo-osmolality and hyponatremia; I45.10 Unspecified right bundle-branch block; N40.0 Benign prostatic hyperplasia without lower urinary tract symptoms; I35.8 Other nonrheumatic aortic valve disorders; I51.7 Cardiomegaly; Z99.81 Dependence on supplemental oxygen; Z87.891 Personal history of nicotine dependence
CPT/HCPCS: 36415; 36600; 71045; 71275; 80053; 80061; 81001; 82803; 83735; 83880; 84100; 84439; 84443; 84484; 85025; 85379; 86331; 86635; 87400; 87634; 87811; 93005; 93306; 94640; 96365; 96375; 99285; A4649; A9270; J1643; J1956; J2919; Q9967